=== PATIENT | female | born 1965 | race Native Hawaiian/Other Pacific Islander ===

== ENCOUNTER 2018-10-12 11:32 | Outpatient (CLI) | payer OTHER ==
[2018-10-12 12:06] LABS: PLATELET COUNT 344 K/uL (152-353)
[2018-10-12 12:50] LABS: POTASSIUM 4.1 mmol/L (3.6-5.2)
== END 2018-10-12 21:05 | disposition home or self-care (01) ==
LOC: LABW 11:32
PROVIDERS: Nurse Practitioner
DX: I10 Essential (primary) hypertension (principal); R73.09 Other abnormal glucose; E78.2 Mixed hyperlipidemia; E53.8 Deficiency of other specified B group vitamins; E55.9 Vitamin D deficiency, unspecified; R53.82 Chronic fatigue, unspecified
CPT/HCPCS: 36415; 80053; 80061; 82306; 82607; 83036; 84443; 85027